=== PATIENT | female | born 1985 | race Caucasian/White ===

== ENCOUNTER → 2017-06-02 | Outpatient (CLI) | payer OTHER ==
[2017-06-02 13:35] LABS: BASO % 0.4 % (0.0-1.0); EOS % 0.6 % (0.0-3.0); IMMATURE GRANULOCYTE % 0.3 % (0-0); LYMPH # 1.3 10^3/uL (1.5-4.5); LYMPH % 18.9 % (24.0-44.0); MEAN CORPUSCULAR HEMOGLOBIN 30.4 pg (27.0-33.0); MEAN CORPUSCULAR HGB CONC 32.6 g/dl (32.0-36.5); MEAN CORPUSCULAR VOLUME 93.2 fl (80.0-96.0); MONO # 0.4 10^3/uL (0.0-0.8); MONO % 5.9 % (0.0-5.0); NEUTROPHILS # 5.1 10^3/uL (1.8-7.7); NEUTROPHILS % 73.9 % (36.0-66.0); PLATELET COUNT, AUTOMATED 250 10^3/uL (150-450); RED CELL DISTRIBUTION WIDTH 11.9 % (11.5-14.5); WHITE BLOOD COUNT 6.9 10^3/uL (4.0-10.0)
[2017-06-02 14:23] LABS: HBsAg Prenatal NEGATIVE (NEGATIVE)
== END ==
LOC: M SMT 10:54
PROVIDERS: ATTEND Advanced Practice Midwife
DX: Z34.81 Encounter for supervision of other normal pregnancy, first trimester (principal); Z3A.13 13 weeks gestation of pregnancy

== ENCOUNTER → 2017-07-20 | Outpatient (CLI) | payer OTHER | LOC: M RAD 10:27 | DX: Z34.82 Encounter for supervision of other normal pregnancy, second trimester (principal) | CPT/HCPCS: 76811 ==

== ENCOUNTER → 2017-08-03 | Outpatient (CLI) | payer OTHER | LOC: M RAD 09:45 | DX: Z36.9 Encounter for antenatal screening, unspecified (principal); Z3A.22 22 weeks gestation of pregnancy | CPT/HCPCS: 76816 ==

== ENCOUNTER → 2017-08-24 | Outpatient (CLI) | payer OTHER ==
[2017-08-24 14:07] LABS: BASO % 0.2 % (0.0-1.0); EOS % 0.4 % (0.0-3.0); HEMATOCRIT 36.2 % (36.0-47.0); IMMATURE GRANULOCYTE % 0.4 % (0-3.0); LYMPH # 1.2 10^3/uL (1.5-4.5); LYMPH % 13.3 % (24.0-44.0); MEAN CORPUSCULAR HEMOGLOBIN 30.5 pg (27.0-33.0); MEAN CORPUSCULAR HGB CONC 33.1 g/dl (32.0-36.5); MEAN CORPUSCULAR VOLUME 92.1 fl (80.0-96.0); MONO # 0.4 10^3/uL (0.0-0.8); MONO % 4.7 % (0.0-5.0); NEUTROPHILS # 7.4 10^3/uL (1.8-7.7); PLATELET COUNT, AUTOMATED 231 10^3/uL (150-450); RED BLOOD COUNT 3.93 10^6/uL (4.00-5.40); RED CELL DISTRIBUTION WIDTH 13.5 % (11.5-14.5); WHITE BLOOD COUNT 9.1 10^3/uL (4.0-10.0)
[2017-08-24 14:42] LABS: GLUCOSE CHALLENGE TEST 1 HOUR 92 MG/DL (LESS THAN 140)
== END ==
LOC: M SMT 08:23
DX: Z34.83 Encounter for supervision of other normal pregnancy, third trimester (principal)

== ENCOUNTER → 2017-10-09 | Outpatient (CLI) | payer OTHER | LOC: M SMT 11:14 | DX: Z31.438 Encounter for other genetic testing of female for procreative management (principal) ==

== ENCOUNTER → 2017-11-13 | Outpatient (REF) | payer OTHER | LOC: M LAB REF 18:24 | DX: Z34.83 Encounter for supervision of other normal pregnancy, third trimester (principal) | CPT/HCPCS: 87081 ==

== ENCOUNTER 2017-11-28 14:34 | Outpatient (CLI) | payer OTHER | END 2017-11-28 15:40 | disposition home or self-care (01) | LOC: M LDO 14:34 | DX: O26.893 Other specified pregnancy related conditions, third trimester (principal); N89.8 Other specified noninflammatory disorders of vagina; O47.1 False labor at or after 37 completed weeks of gestation; Z3A.39 39 weeks gestation of pregnancy | CPT/HCPCS: 76815 ==

== ENCOUNTER 2017-11-30 14:49 | Outpatient (CLI) | payer OTHER | END 2017-11-30 16:10 | disposition home or self-care (01) | LOC: M LDO 14:49 | DX: O47.1 False labor at or after 37 completed weeks of gestation (principal); Z3A.39 39 weeks gestation of pregnancy | CPT/HCPCS: 59025 ==

== ENCOUNTER 2017-12-09 07:31 | Inpatient (IN) | payer OTHER ==
[2017-12-09] MEDS ORDERED: LR 1,000 ML IV (08:08)
[2017-12-09] MEDS: LACTATED RINGER'S 1000 ML IV (08:56)
[2017-12-09] MEDS: OXYTOCIN DRIP 30 UNITS in APPROPRIATE DILUENT 1 EA IV (08:56)
[2017-12-09 09:04] LABS: HEMATOCRIT 35.8 % (36.0-47.0); MEAN CORPUSCULAR HEMOGLOBIN 31.2 pg (27.0-33.0); MEAN CORPUSCULAR HGB CONC 33.5 g/dl (32.0-36.5); PLATELET COUNT, AUTOMATED 204 10^3/uL (150-450); RED BLOOD COUNT 3.85 10^6/uL (4.00-5.40); RED CELL DISTRIBUTION WIDTH 14.6 % (11.5-14.5); WHITE BLOOD COUNT 9.3 10^3/uL (4.0-10.0)
[2017-12-09] MEDS ORDERED: FENTANYL 2MCG/ML ROPIVACAINE 0.2% IN 0.9% NACL 200ML IVBAG As Ordered (18:38)
[2017-12-09] MEDS ORDERED: ePHEDrine SULFATE 25 MG/5 ML(5MG/ML) SYRINGE As Ordered (20:07)
[2017-12-09] MEDS: ePHEDrine SULFATE 25 MG/5 ML(5MG/ML) SYRINGE IV ×2 (20:09→20:18)
[2017-12-09] MEDS ORDERED: EPIDURAL/PCA KEYS XX (20:15)
[2017-12-09] MEDS ORDERED: ONDANSETRON 4MG/2ML VIAL (J2405) IV (20:15)
[2017-12-09] MEDS ORDERED: FENTANYL/ROPIVACAINE/NACL BAG 200 ML EPIDURAL (20:15)
[2017-12-09] MEDS ORDERED: EPIDURAL COMMENT XX (20:15)
[2017-12-09] MEDS ORDERED: REFRIGERATOR IV KEYS XX (20:15)
[2017-12-09] MEDS ORDERED: NALOXONE INJ 0.4 MG/1 ML VIAL (J2310) IV (20:15)
[2017-12-09] MEDS ORDERED: LACTATED RINGER'S 1000 ML IV (20:15)
[2017-12-09] MEDS ORDERED: diphenhydrAMINE INJ 50MG/ML VIAL (J1200) IV (20:15)
[2017-12-10] MEDS ORDERED: OXYTOCIN 30 UNITS IN 0.9% NaCl 500ML IV BAG (J2590) As Ordered ×3 (04:16→09:01)
[2017-12-10] MEDS: FAMOTIDINE 20 MG TAB PO (05:17)
[2017-12-10] MEDS ORDERED: AZITHROMYCIN INJ 500MG VIAL (J0456) As Ordered (07:06)
[2017-12-10] MEDS ORDERED: BICITRA 30ML SOLN UDC As Ordered (07:06)
[2017-12-10] MEDS ORDERED: ceFAZolin 2 GM/D5W 50 ML IV BAG (J0690 PER 500MG) As Ordered (07:06)
[2017-12-10] MEDS: AZITHROMYCIN INJ 500 MG, VIAL MATE ADAPTER 1 EACH in D5W 250 ML IV (07:21)
[2017-12-10] MEDS ORDERED: MORPHINE PRES-FREE INJ 10 MG/10 ML VIAL (J2274) As Ordered (07:28)
[2017-12-10] MEDS ORDERED: LIDOCAINE 2% W/EPIN INJ 20ML **PRES FREE As Ordered (07:28)
[2017-12-10] MEDS ORDERED: ONDANSETRON 4MG/2ML VIAL (J2405) As Ordered ×2 (07:28)
[2017-12-10] MEDS ORDERED: OXYTOCIN INJ 10 UNITS/ML VIAL (J2590) As Ordered ×7 (07:30→08:58)
[2017-12-10] MEDS: BICITRA 30ML SOLN UDC PO (07:40)
[2017-12-10] MEDS ORDERED: ONDANSETRON 4MG/2ML VIAL (J2405) IV ×3 (08:20→10:30)
[2017-12-10] MEDS ORDERED: NALBUPHINE HCL 10 MG/ML AMP (J2300) IV ×2 (08:20→10:30)
[2017-12-10] MEDS ORDERED: NALOXONE INJ 0.4 MG/1 ML VIAL (J2310) IV ×2 (08:20)
[2017-12-10] MEDS: METHYLERGONOVINE MALEATE 0.2 MG/ML VIAL (J2210) IM ×2 (09:00→09:05)
[2017-12-10] MEDS ORDERED: PERCOCET 5MG/325MG TAB PO ×3 (09:30→10:30)
[2017-12-10] MEDS ORDERED: PROMETHAZINE 25 MG TAB PO (09:30)
[2017-12-10] MEDS: miSOPROStol 200 MCG TAB (S0191) PR (09:45)
[2017-12-10] MEDS: OXYTOCIN DRIP 30 UNITS in APPROPRIATE DILUENT 1 EA IV ×4 (10:11→16:40)
[2017-12-10] MEDS ORDERED: fentaNYL 100 MCG/2 ML INJECTION (J3010) As Ordered (10:24)
[2017-12-10] MEDS ORDERED: fentaNYL 100 MCG/2 ML INJECTION (J3010) IV (10:30)
[2017-12-10] MEDS ORDERED: METOCLOPRAMIDE INJ 10MG/2ML VIAL (J2765) IV (10:30)
[2017-12-10] MEDS: METHYLERGONOVINE MALEATE 0.2 MG TAB PO ×3 (13:20→21:04)
[2017-12-10] MEDS: LR 1,000 ML IV ×2 (14:16→17:22)
[2017-12-10] MEDS: KETOROLAC 30 MG/ML VIAL (J1885) IV ×2 (14:28→22:13)
[2017-12-10 16:04] LABS: HEMATOCRIT 23.7 % (36.0-47.0); MEAN CORPUSCULAR HEMOGLOBIN 31.7 pg (27.0-33.0); MEAN CORPUSCULAR HGB CONC 33.8 g/dl (32.0-36.5); RED BLOOD COUNT 2.52 10^6/uL (4.00-5.40); RED CELL DISTRIBUTION WIDTH 14.8 % (11.5-14.5); WHITE BLOOD COUNT 14.2 10^3/uL (4.0-10.0)
[2017-12-10 16:07] LABS: PLATELET COUNT, AUTOMATED 114 10^3/uL (150-450)
[2017-12-10 16:14] LABS: INR 1.32; PROTHROMBIN TIME 16.7 SECONDS (12.4-14.5)
[2017-12-10 16:15] LABS: FIBRINOGEN 221 MG/DL (221-452); PARTIAL THROMBOPLASTIN TIME 34.6 SECONDS (26.8-37.9)
[2017-12-10] MEDS: CARBOPROST TROMETHAMINE 250 MCG/ML AMP IM (19:36)
[2017-12-10 19:45] LABS: IMMEDIATE SPIN CROSSMATCH 1 2
[2017-12-10] MEDS: METOCLOPRAMIDE INJ 10MG/2ML VIAL (J2765) IV (19:59)
[2017-12-10] MEDS: DOCUSATE SODIUM 100 MG CAP PO (20:21)
[2017-12-10] MEDS: LOPERAMIDE 2 MG CAP PO (21:05)
[2017-12-11] MEDS: METHYLERGONOVINE MALEATE 0.2 MG TAB PO ×3 (01:13→09:42)
[2017-12-11] MEDS: KETOROLAC 30 MG/ML VIAL (J1885) IV ×2 (02:51→09:42)
[2017-12-11] MEDS: LR 1,000 ML IV (06:11)
[2017-12-11 06:51] LABS: HEMATOCRIT 28.8 % (36.0-47.0); HEMOGLOBIN 9.9 g/dl (12.0-15.5); MEAN CORPUSCULAR HEMOGLOBIN 31.3 pg (27.0-33.0); MEAN CORPUSCULAR HGB CONC 34.4 g/dl (32.0-36.5); MEAN CORPUSCULAR VOLUME 91.1 fl (80.0-96.0); PLATELET COUNT, AUTOMATED 112 10^3/uL (150-450); RED BLOOD COUNT 3.16 10^6/uL (4.00-5.40); RED CELL DISTRIBUTION WIDTH 15.6 % (11.5-14.5); WHITE BLOOD COUNT 12.8 10^3/uL (4.0-10.0)
[2017-12-11 07:01] LABS: INR 1.11; PROTHROMBIN TIME 14.5 SECONDS (12.4-14.5)
[2017-12-11 07:02] LABS: FIBRINOGEN 371 MG/DL (221-452); PARTIAL THROMBOPLASTIN TIME 30.3 SECONDS (26.8-37.9)
[2017-12-11 07:19] LABS: ANION GAP 4 MEQ/L (8-16); BLOOD UREA NITROGEN 11 MG/DL (7-18); CALCIUM LEVEL 7.5 MG/DL (8.5-10.1); CARBON DIOXIDE LEVEL 28 MEQ/L (21-32); CHLORIDE LEVEL 109 MEQ/L (98-107); CREATININE FOR GFR 0.55 MG/DL (0.55-1.30); GLOMERULAR FILTRATION RATE > 60.0 (>60); GLUCOSE, FASTING 59 MG/DL (70-100); POTASSIUM SERUM 4.2 MEQ/L (3.5-5.1); SODIUM LEVEL 141 MEQ/L (136-145)
[2017-12-11] MEDS: PRENATAL VITAMINS CHEWABLE TABLET PO (09:42)
[2017-12-11] MEDS: DOCUSATE SODIUM 100 MG CAP PO ×2 (09:42→20:17)
[2017-12-11] MEDS: RHOGAM 300 MCG (1500 IU) INJ (J2790) IM (10:58)
[2017-12-11] MEDS: MEASLES,MUMPS,RUBELLA VACCINE INJ (MMR-II) (90707) SC (10:58)
[2017-12-11] MEDS: IBUPROFEN 800 MG TAB PO (16:57)
[2017-12-12] MEDS: IBUPROFEN 800 MG TAB PO ×3 (01:55→16:31)
[2017-12-12] MEDS: PRENATAL VITAMINS CHEWABLE TABLET PO (08:34)
[2017-12-12] MEDS: DOCUSATE SODIUM 100 MG CAP PO ×2 (08:34→20:05)
[2017-12-13] MEDS: IBUPROFEN 800 MG TAB PO ×2 (00:57→08:22)
[2017-12-13] MEDS: PRENATAL VITAMINS CHEWABLE TABLET PO (08:22)
[2017-12-13] MEDS: DOCUSATE SODIUM 100 MG CAP PO (08:22)
== END 2017-12-13 11:45 | disposition home or self-care (01) | DRG 765 ==
LOC: M LDI 07:31 → M OBS 12-10 11:04
PROVIDERS: Obstetrics & Gynecology
PROC: 10D00Z1 Extraction of Products of Conception, Low, Open Approach (ICD-10-PCS; principal; 2017-12-10 07:46)
PROC: 3E033VJ Introduction of Other Hormone into Peripheral Vein, Percutaneous Approach (ICD-10-PCS; 2017-12-10 07:46)
PROC: 30233N1 Transfusion of Nonautologous Red Blood Cells into Peripheral Vein, Percutaneous Approach (ICD-10-PCS; 2017-12-10 07:46)
DX: O48.0 Post-term pregnancy (principal); O72.1 Other immediate postpartum hemorrhage; Z37.0 Single live birth; Z3A.40 40 weeks gestation of pregnancy; O32.4XX0 Maternal care for high head at term, not applicable or unspecified

== ENCOUNTER → 2018-01-05 | Outpatient (CLI) | payer OTHER ==
[2018-01-05 16:31] LABS: HEMATOCRIT 39.2 % (36.0-47.0); HEMOGLOBIN 12.6 g/dl (12.0-15.5); MEAN CORPUSCULAR HEMOGLOBIN 29.9 pg (27.0-33.0); MEAN CORPUSCULAR HGB CONC 32.1 g/dl (32.0-36.5); MEAN CORPUSCULAR VOLUME 93.1 fl (80.0-96.0); PLATELET COUNT, AUTOMATED 216 10^3/uL (150-450); RED BLOOD COUNT 4.21 10^6/uL (4.00-5.40); RED CELL DISTRIBUTION WIDTH 12.9 % (11.5-14.5)
== END ==
LOC: M SMT 14:21
DX: D64.9 Anemia, unspecified (principal)
CPT/HCPCS: 85027

== ENCOUNTER → 2019-03-28 | Outpatient (REF) | payer OTHER ==
[~2019-03-28] MED LIST: COLA100C5 PO; IBUP80TA PO; NALT50TA4 PO; OXYC1TAB23 PO; PREN1TAB11 PO; ZANT150T15 PO
[2019-03-30 15:06] LABS: HPV HYBRID CAPTURE II Negative (Negative)
== END ==
LOC: M LAB REF 17:19
PROVIDERS: ATTEND Advanced Practice Midwife
DX: Z12.4 Encounter for screening for malignant neoplasm of cervix (principal); Z13.79 Encounter for other screening for genetic and chromosomal anomalies
CPT/HCPCS: 36415; 87624; G0123

== ENCOUNTER → 2019-03-28 | Outpatient (CLI) | payer OTHER | LOC: M SMT 15:47 | PROVIDERS: ATTEND Advanced Practice Midwife | DX: Z13.79 Encounter for other screening for genetic and chromosomal anomalies (principal) ==